=== PATIENT | male | born 1970 | race Caucasian/White ===

== ENCOUNTER 2019-10-29 21:22 | Inpatient (IN) | payer SELFPAY ==
[~2019-10-29] VITALS: Ht 167.6 cm; Wt 98.9 kg
[2019-10-29] MEDS ORDERED: ACETAMINOPHEN 325MG TABLET PO ONE (22:30)
[2019-10-29] MEDS ORDERED: ALBUTEROL (0.083%) 2.5MG/3ML NEB HHN STA (22:52)
[2019-10-29] MEDS ORDERED: IPRATROPIUM BROMIDE (0.02%) 0.5MG/2.5ML NEB HHN STA (22:52)
[2019-10-29] MEDS ORDERED: PREDNISONE 20MG TABLET PO ONE (23:00)
[2019-10-30] MEDS ORDERED: CEFTRIAXONE 1 G PREMIX 50 ML IV ONE (02:00)
[2019-10-30] MEDS ORDERED: AZITHROMYCIN 500 MG in DEXT 5% WATER 250 ML IV ONE (02:00)
[2019-10-30] MEDS ORDERED: SODIUM CHLORIDE 0.9% 1000ML BAG (SEPSIS BOLUS) IV ONE (02:00)
[2019-10-30 02:12] LABS: BASOPHILS % 0.2 % (0.0-2.0); EOSINOPHILS % 0.1 % (0.0-5.0); HEMATOCRIT. 43.9 % (42.0-52.0); HEMOGLOBIN. 15.2 g/dL (14.0-18.0); LYMPHOCYTES % 20.1 % (20.0-50.0); MEAN CORPUSCULAR HEMOGLOBIN 29.3 pg (28.0-32.0); MEAN CORPUSCULAR VOLUME 84.9 fL (80.0-94.0); MEAN PLATELET VOLUME 9.9 fl (7.4-10.4); MONOCYTES % 3.9 % (2.0-8.0); NEUTROPHILS % 75.7 % (40.0-76.0); PLATELET 152 x1000/uL (130-400); RED BLOOD CELL COUNT 5.17 mill/uL (4.7-6.1); RED CELL DISTRIBUTION WIDTH 14.1 % (11.6-14.6)
[2019-10-30 02:15] LABS: CHLORIDE 98 mEq/L (98-107)
[2019-10-30 02:18] LABS: PROTHROMBIN TIME 11.2 sec (9.6-11.0)
[2019-10-30 04:03] LABS: CLARITY URINE CLOUDY (CLEAR); COLOR URINE DARK YELLOW (YELLOW); KETONES URINE 2+ (NEGATIVE); LEUKOCYTE ESTERASE URINE 1+ (NEGATIVE); NITRITE URINE POSITIVE (NEGATIVE); OCCULT BLOOD URINE NEGATIVE (NEGATIVE); PROTEIN URINE 2+ (NEGATIVE); SPECIFIC GRAVITY URINE 1.044 (1.005-1.030)
[2019-10-30] MEDS ORDERED: IBUPROFEN 600MG TABLET PO ONE (05:00)
[2019-10-30] MEDS ORDERED: CLONIDINE 0.1MG TABLET PO PRN (10:45)
[2019-10-30] MEDS ORDERED: MAGNESIUM/ALUMINUM HYDROXIDE/SIMETHICONE 30ML UDC PO PRN (10:45)
[2019-10-30] MEDS ORDERED: ACETAMINOPHEN 325MG TABLET PO PRN ×2 (10:45)
[2019-10-30] MEDS ORDERED: DEXTROSE 50% WATER 50ML SYRINGE IV PRN (10:45)
[2019-10-30] MEDS ORDERED: AZITHROMYCIN 500 MG in DEXT 5% WATER 250 ML IV SCH (10:45)
[2019-10-30] MEDS ORDERED: ENOXAPARIN 40MG/0.4ML SYR SUBCUT SCH (12:30)
[2019-10-30] MEDS: BLOOD SUGAR DIAGNOSTIC STRIP TEST SCH ×3 (12:43→21:00)
[2019-10-30] MEDS: SODIUM CHLORIDE 0.9% INJ 3ML FLUSH IVF SCH ×2 (14:00→21:31)
[2019-10-30 14:30] VITALS: BP 132/84
[2019-10-30] MEDS ORDERED: METF-414 MT (15:18)
[2019-10-30] MEDS ORDERED: LISI-604 MT (15:18)
[2019-10-30] MEDS: INSULIN LISPRO 100 UNITS/ML SUBCUT SCH ×2 (17:10→21:00)
[2019-10-30] MEDS ORDERED: ALBUTEROL (0.5%) 2.5MG/0.5ML NEB HHN PRN (17:15)
[2019-10-30] MEDS ORDERED: IBUPROFEN 600MG TABLET PO PRN (19:00)
[2019-10-30 20:00] VITALS: BP 128/68
[2019-10-30] MEDS ORDERED: ZOLPIDEM TARTRATE 5MG TABLET PO PRN (21:00)
[2019-10-30] MEDS: GUAIFENESIN 600MG ER TABLET PO SCH (21:29)
[2019-10-31] VITALS: BP 100/61
[2019-10-31] MEDS: PROMETHAZINE/DEXTROMETHORPHAN 6.25-15MG/5ML BOTTLE 120ML PO PRN ×2 (00:33→21:52)
[2019-10-31] MEDS: DIPHENHYDRAMINE 50MG/ML VIAL IV PRN (03:12)
[2019-10-31] MEDS: ONDANSETRON HCL 4MG/2ML INJ IV PRN (03:12)
[2019-10-31 04:00] VITALS: BP 113/68
[2019-10-31] MEDS: INSULIN LISPRO 100 UNITS/ML SUBCUT SCH ×4 (06:08→21:00)
[2019-10-31] MEDS: AZITHROMYCIN 250 MG in DEXT 5% WATER 250 ML IV SCH (06:08)
[2019-10-31] MEDS: SODIUM CHLORIDE 0.9% INJ 3ML FLUSH IVF SCH ×3 (06:08→21:50)
[2019-10-31] MEDS: METFORMIN HCL 500MG TABLET PO SCH (06:08)
[2019-10-31] MEDS: BLOOD SUGAR DIAGNOSTIC STRIP TEST SCH ×4 (06:08→21:00)
[2019-10-31 08:00] VITALS: BP 134/76
[2019-10-31] MEDS: GUAIFENESIN 600MG ER TABLET PO SCH ×2 (08:18→21:50)
[2019-10-31 12:00] VITALS: BP 130/76
[2019-10-31] MEDS: ACETAMINOPHEN 325MG TABLET PO PRN (15:24)
[2019-10-31 16:00] VITALS: BP 110/69
[2019-10-31 20:00] VITALS: BP 117/71
[2019-11-01] VITALS: BP 110/66
[2019-11-01 04:00] VITALS: BP 123/73
[2019-11-01] MEDS: AZITHROMYCIN 250 MG in DEXT 5% WATER 250 ML IV SCH (04:04)
[2019-11-01] MEDS: SODIUM CHLORIDE 0.9% INJ 3ML FLUSH IVF SCH ×3 (04:05→20:47)
[2019-11-01] MEDS: BLOOD SUGAR DIAGNOSTIC STRIP TEST SCH ×4 (06:00→20:41)
[2019-11-01] MEDS: INSULIN LISPRO 100 UNITS/ML SUBCUT SCH ×4 (06:01→20:41)
[2019-11-01] MEDS: METFORMIN HCL 500MG TABLET PO SCH (06:01)
[2019-11-01 06:57] LABS: BASOPHILS % 0.2 % (0.0-2.0); EOSINOPHILS % 1.3 % (0.0-5.0); HEMATOCRIT. 41.8 % (42.0-52.0); HEMOGLOBIN. 14.1 g/dL (14.0-18.0); MEAN CORPUSCULAR HEMOGLOBIN 29.2 pg (28.0-32.0); MEAN CORPUSCULAR VOLUME 86.2 fL (80.0-94.0); MEAN PLATELET VOLUME 8.8 fl (7.4-10.4); MONOCYTES % 6.3 % (2.0-8.0); NEUTROPHILS % 70.2 % (40.0-76.0); PLATELET 179 x1000/uL (130-400); RED BLOOD CELL COUNT 4.85 mill/uL (4.7-6.1); RED CELL DISTRIBUTION WIDTH 14.3 % (11.6-14.6)
[2019-11-01 06:59] LABS: CHLORIDE 101 mEq/L (98-107)
[2019-11-01 07:05] LABS: PHOSPHORUS 2.7 mg/dL (2.5-4.9)
[2019-11-01 08:00] VITALS: BP 118/76
[2019-11-01] MEDS: GUAIFENESIN 600MG ER TABLET PO SCH ×2 (09:00→20:41)
[2019-11-01] MEDS: PROMETHAZINE/DEXTROMETHORPHAN 6.25-15MG/5ML BOTTLE 120ML PO PRN (09:02)
[2019-11-01 12:00] VITALS: BP 105/76
[2019-11-01 16:00] VITALS: BP 118/56
[2019-11-01] MEDS: ACETAMINOPHEN 325MG TABLET PO PRN (17:23)
[2019-11-01 20:00] VITALS: BP 123/59
[2019-11-02] VITALS: BP 122/64
[2019-11-02 04:00] VITALS: BP 127/76
[2019-11-02] MEDS: METFORMIN HCL 500MG TABLET PO SCH (06:14)
[2019-11-02] MEDS: INSULIN LISPRO 100 UNITS/ML SUBCUT SCH ×4 (06:14→21:00)
[2019-11-02] MEDS: AZITHROMYCIN 250 MG TABLET PO SCH (06:14)
[2019-11-02] MEDS: BLOOD SUGAR DIAGNOSTIC STRIP TEST SCH ×4 (06:14→21:26)
[2019-11-02] MEDS: SODIUM CHLORIDE 0.9% INJ 3ML FLUSH IVF SCH ×3 (06:19→21:10)
[2019-11-02 08:00] VITALS: BP 135/87
[2019-11-02] MEDS: GUAIFENESIN 600MG ER TABLET PO SCH ×2 (09:33→21:10)
[2019-11-02 12:00] VITALS: BP 128/82
[2019-11-02] MEDS ORDERED: FUROSEMIDE 40MG/4ML VIAL IVP NR (12:00)
[2019-11-02] MEDS: HYDROXYCHLOROQUINE SULFATE 200MG TABLET PO SCH ×2 (13:09→18:28)
[2019-11-02] MEDS: ZINC SULFATE 220 MG ( 50 ) CAPSULE PO SCH (13:10)
[2019-11-02] MEDS: THIAMINE HCL 100MG TABLET PO SCH ×2 (13:10→18:28)
[2019-11-02] MEDS: ASCORBIC ACID 500 MG TABLET PO SCH ×3 (13:10→23:40)
[2019-11-02] MEDS: ALBUTEROL 6.7GM HFA INHALER ORI PRN ×2 (13:26→21:16)
[2019-11-02] MEDS: ONDANSETRON HCL 4MG/2ML INJ IV PRN (15:08)
[2019-11-02 16:00] VITALS: BP 135/78
[2019-11-02] MEDS: MONTELUKAST SODIUM 10MG TABLET PO SCH (18:28)
[2019-11-02 20:00] VITALS: BP 117/68
[2019-11-02] MEDS: FAMOTIDINE 20MG TABLET PO SCH (21:10)
[2019-11-03 00:05] VITALS: BP 110/58
[2019-11-03 04:00] VITALS: BP 120/62
[2019-11-03 05:51] LABS: BASOPHILS % 0.2 % (0.0-2.0); HEMATOCRIT. 39.1 % (42.0-52.0); HEMOGLOBIN. 13.4 g/dL (14.0-18.0); LYMPHOCYTES % 19.4 % (20.0-50.0); MEAN CORPUSCULAR HEMOGLOBIN 29.2 pg (28.0-32.0); MEAN CORPUSCULAR VOLUME 84.9 fL (80.0-94.0); MEAN PLATELET VOLUME 8.5 fl (7.4-10.4); NEUTROPHILS % 70.4 % (40.0-76.0); PLATELET 233 x1000/uL (130-400); RED CELL DISTRIBUTION WIDTH 13.9 % (11.6-14.6)
[2019-11-03 06:05] LABS: CHLORIDE 98 mEq/L (98-107)
[2019-11-03 06:14] LABS: PHOSPHORUS 2.9 mg/dL (2.5-4.9)
[2019-11-03 06:17] LABS: CREATINE KINASE MB FRACTION < 1.0 ng/mL (0.5-3.6)
[2019-11-03] MEDS: SODIUM CHLORIDE 0.9% INJ 3ML FLUSH IVF SCH ×3 (06:56→22:12)
[2019-11-03] MEDS: INSULIN LISPRO 100 UNITS/ML SUBCUT SCH ×4 (06:57→21:00)
[2019-11-03] MEDS: METFORMIN HCL 500MG TABLET PO SCH ×2 (06:57→07:10)
[2019-11-03] MEDS: AZITHROMYCIN 250 MG TABLET PO SCH (06:57)
[2019-11-03] MEDS: ASCORBIC ACID 500 MG TABLET PO SCH ×3 (06:57→17:17)
[2019-11-03] MEDS: BLOOD SUGAR DIAGNOSTIC STRIP TEST SCH ×4 (06:57→21:00)
[2019-11-03 08:00] VITALS: BP 116/54
[2019-11-03] MEDS: HYDROXYCHLOROQUINE SULFATE 200MG TABLET PO SCH ×2 (09:12→17:18)
[2019-11-03] MEDS: THIAMINE HCL 100MG TABLET PO SCH ×2 (09:13→17:18)
[2019-11-03] MEDS: ZINC SULFATE 220 MG ( 50 ) CAPSULE PO SCH (09:13)
[2019-11-03] MEDS: GUAIFENESIN 600MG ER TABLET PO SCH ×3 (09:13→22:11)
[2019-11-03 11:47] VITALS: BP 126/62
[2019-11-03 15:33] VITALS: BP 121/58
[2019-11-03] MEDS: MONTELUKAST SODIUM 10MG TABLET PO SCH (17:18)
[2019-11-03 20:00] VITALS: BP 117/70
[2019-11-03] MEDS: FAMOTIDINE 20MG TABLET PO SCH (22:11)
[2019-11-04] VITALS: BP 110/76
[2019-11-04] MEDS: BLOOD SUGAR DIAGNOSTIC STRIP TEST SCH ×4 (06:40→21:00)
[2019-11-04] MEDS: INSULIN LISPRO 100 UNITS/ML SUBCUT SCH ×4 (07:10→21:00)
[2019-11-04] MEDS: SODIUM CHLORIDE 0.9% INJ 3ML FLUSH IVF SCH ×3 (07:11→22:00)
[2019-11-04] MEDS: ASCORBIC ACID 500 MG TABLET PO SCH ×5 (07:11→23:16)
[2019-11-04 08:00] VITALS: BP 122/78
[2019-11-04] MEDS: HYDROXYCHLOROQUINE SULFATE 200MG TABLET PO SCH ×2 (08:58→17:53)
[2019-11-04] MEDS: ZINC SULFATE 220 MG ( 50 ) CAPSULE PO SCH (08:58)
[2019-11-04] MEDS: METFORMIN HCL 500MG TABLET PO SCH (08:58)
[2019-11-04] MEDS: THIAMINE HCL 100MG TABLET PO SCH (08:59)
[2019-11-04] MEDS: GUAIFENESIN 600MG ER TABLET PO SCH ×2 (08:59→21:53)
[2019-11-04 12:00] VITALS: BP 112/63
[2019-11-04 16:00] VITALS: BP 116/58
[2019-11-04] MEDS: MONTELUKAST SODIUM 10MG TABLET PO SCH (17:53)
[2019-11-04 20:00] VITALS: BP 121/71
[2019-11-04] MEDS: FAMOTIDINE 20MG TABLET PO SCH (21:52)
[2019-11-05 00:26] VITALS: BP 105/75
[2019-11-05] MEDS: PROMETHAZINE/DEXTROMETHORPHAN 6.25-15MG/5ML BOTTLE 120ML PO PRN ×2 (01:12→23:06)
[2019-11-05] MEDS: BENZONATATE 100MG CAPSULE PO PRN ×2 (01:32→16:58)
[2019-11-05 04:00] VITALS: BP 103/61
[2019-11-05] MEDS: SODIUM CHLORIDE 0.9% INJ 3ML FLUSH IVF SCH ×2 (05:14→22:00)
[2019-11-05] MEDS: BLOOD SUGAR DIAGNOSTIC STRIP TEST SCH ×4 (06:40→21:58)
[2019-11-05] MEDS: INSULIN LISPRO 100 UNITS/ML SUBCUT SCH ×4 (07:00→21:00)
[2019-11-05 08:00] VITALS: BP 127/68
[2019-11-05] MEDS: GUAIFENESIN 600MG ER TABLET PO SCH ×2 (09:09→21:59)
[2019-11-05] MEDS: THIAMINE HCL 100MG TABLET PO SCH ×3 (09:09→16:58)
[2019-11-05] MEDS: ASCORBIC ACID 500 MG TABLET PO SCH ×2 (09:09→21:59)
[2019-11-05] MEDS: METFORMIN HCL 500MG TABLET PO SCH (09:09)
[2019-11-05] MEDS: HYDROXYCHLOROQUINE SULFATE 200MG TABLET PO SCH ×2 (09:09→16:58)
[2019-11-05] MEDS: ZINC SULFATE 220 MG ( 50 ) CAPSULE PO SCH (09:09)
[2019-11-05 12:00] VITALS: BP 121/79
[2019-11-05 16:00] VITALS: BP 145/78
[2019-11-05] MEDS: MONTELUKAST SODIUM 10MG TABLET PO SCH (16:58)
[2019-11-05 20:00] VITALS: BP 126/59
[2019-11-05] MEDS: FAMOTIDINE 20MG TABLET PO SCH (21:00)
[2019-11-05] MEDS: ACETAMINOPHEN 325MG TABLET PO PRN (21:59)
[2019-11-06] VITALS: BP 107/70
[2019-11-06] MEDS: BENZONATATE 100MG CAPSULE PO PRN (00:38)
[2019-11-06 04:00] VITALS: BP 118/72
[2019-11-06] MEDS: SODIUM CHLORIDE 0.9% INJ 3ML FLUSH IVF SCH ×3 (06:00→22:45)
[2019-11-06] MEDS: BLOOD SUGAR DIAGNOSTIC STRIP TEST SCH ×4 (06:40→21:00)
[2019-11-06] MEDS: METFORMIN HCL 500MG TABLET PO SCH ×2 (07:10→08:22)
[2019-11-06] MEDS: INSULIN LISPRO 100 UNITS/ML SUBCUT SCH ×4 (07:10→21:00)
[2019-11-06 08:00] VITALS: BP 143/62
[2019-11-06] MEDS: GUAIFENESIN 600MG ER TABLET PO SCH ×3 (08:21→22:44)
[2019-11-06] MEDS: ASCORBIC ACID 500 MG TABLET PO SCH ×2 (08:22→22:44)
[2019-11-06] MEDS: HYDROXYCHLOROQUINE SULFATE 200MG TABLET PO SCH ×2 (08:22→18:52)
[2019-11-06] MEDS: THIAMINE HCL 100MG TABLET PO SCH ×2 (08:22→18:52)
[2019-11-06] MEDS: ZINC SULFATE 220 MG ( 50 ) CAPSULE PO SCH (08:24)
[2019-11-06] MEDS: DIPHENHYDRAMINE 50MG/ML VIAL IV PRN (11:36)
[2019-11-06 12:00] VITALS: BP 139/82
[2019-11-06 16:00] VITALS: BP 115/74
[2019-11-06] MEDS: MONTELUKAST SODIUM 10MG TABLET PO SCH (18:53)
[2019-11-06] MEDS: ACETAMINOPHEN 325MG TABLET PO PRN (18:53)
[2019-11-06 20:00] VITALS: BP 113/78
[2019-11-06] MEDS: FAMOTIDINE 20MG TABLET PO SCH ×2 (21:00→22:44)
[2019-11-07] VITALS: BP 132/84
[2019-11-07 04:00] VITALS: BP 133/85
[2019-11-07] MEDS: BLOOD SUGAR DIAGNOSTIC STRIP TEST SCH ×3 (06:55→17:30)
[2019-11-07] MEDS: METFORMIN HCL 500MG TABLET PO SCH (06:56)
[2019-11-07] MEDS: SODIUM CHLORIDE 0.9% INJ 3ML FLUSH IVF SCH ×2 (06:56→13:35)
[2019-11-07] MEDS: INSULIN LISPRO 100 UNITS/ML SUBCUT SCH ×3 (06:56→17:10)
[2019-11-07 08:00] VITALS: BP 130/78
[2019-11-07] MEDS: GUAIFENESIN 600MG ER TABLET PO SCH (09:00)
[2019-11-07] MEDS: ASCORBIC ACID 500 MG TABLET PO SCH (09:12)
[2019-11-07] MEDS: ZINC SULFATE 220 MG ( 50 ) CAPSULE PO SCH (09:13)
[2019-11-07] MEDS: THIAMINE HCL 100MG TABLET PO SCH ×2 (09:14→17:46)
[2019-11-07 12:03] VITALS: BP 126/72
[2019-11-07] MEDS: ACETAMINOPHEN 325MG TABLET PO PRN (13:35)
[2019-11-07 16:00] VITALS: BP 116/71
[2019-11-07 17:04] VITALS: BP 116/72
[2019-11-07] MEDS: MONTELUKAST SODIUM 10MG TABLET PO SCH (17:46)
== END 2019-11-07 18:33 | disposition home or self-care (01) | DRG 720 ==
LOC: ER 21:22 → 7EST 10-30 04:49 → EDBEDREQ 10-30 04:51 → EDBEDREQTM 10-30 04:51 → ENRESERV 10-30 13:08
PROVIDERS: ADMIT Internal Medicine; ATTEND Internal Medicine
DX: A41.9 Sepsis, unspecified organism (principal); U07.1 COVID-19; J96.01 Acute respiratory failure with hypoxia; J45.901 Unspecified asthma with (acute) exacerbation; E11.9 Type 2 diabetes mellitus without complications; I10 Essential (primary) hypertension; E66.9 Obesity, unspecified; J12.89 Other viral pneumonia; N39.0 Urinary tract infection, site not specified; R74.0 Nonspecific elevation of levels of transaminase and lactic acid dehydrogenase [LDH]; Z82.49 Family history of ischemic heart disease and other diseases of the circulatory system; Z91.19 Patient's noncompliance with other medical treatment and regimen; Z83.3 Family history of diabetes mellitus; Z88.2 Allergy status to sulfonamides; Z90.49 Acquired absence of other specified parts of digestive tract; Z68.35 Body mass index [BMI] 35.0-35.9, adult
CPT/HCPCS: 36415; 71045; 80053; 81003; 82553; 82728; 82962; 83036; 83605; 83615; 83735; 83880; 84100; 84145; 85025; 86140; 87635; 87804; 93005; 99291; J0456; J0696; J1200; J1650; J1815; J1940; J2405; J7030; J7060; J7512

== ENCOUNTER 2020-06-12 09:51 | Emergency (ER) | payer MEDICAID ==
[~2020-06-12] VITALS: Ht 172.7 cm; Wt 111.0 kg
[~2020-06-12 09:51] MED LIST: LISI-604 MT; METF-414 MT
[2020-06-12] MEDS ORDERED: CLONIDINE 0.1MG TABLET PO ONE (10:15)
[2020-06-12 10:31] LABS: BASOPHILS % 0.5 % (0.0-2.0); EOSINOPHILS % 1.6 % (0.0-5.0); HEMATOCRIT. 46.8 % (42.0-52.0); HEMOGLOBIN. 15.7 g/dL (14.0-18.0); LYMPHOCYTES % 26.7 % (20.0-50.0); MEAN PLATELET VOLUME 8.8 fl (7.4-10.4); MONOCYTES % 4.9 % (2.0-8.0); NEUTROPHILS % 66.3 % (40.0-76.0); PLATELET 149 x1000/uL (130-400); RED BLOOD CELL COUNT 5.44 mill/uL (4.7-6.1); RED CELL DISTRIBUTION WIDTH 14.7 % (11.6-14.6)
[2020-06-12 10:38] LABS: CHLORIDE 102 mEq/L (98-107)
[2020-06-12] MEDS ORDERED: HYDROCODONE/ACETAMINOPHEN 5/325MG TABLET PO ONE (12:00)
[2020-06-12 14:00] VITALS: BP 156/98
== END 2020-06-12 14:30 ==
LOC: ER 09:51
DX: I10 Essential (primary) hypertension (principal); E11.65 Type 2 diabetes mellitus with hyperglycemia; J45.909 Unspecified asthma, uncomplicated; Z91.013 Allergy to seafood; Z88.2 Allergy status to sulfonamides; Z98.890 Other specified postprocedural states
CPT/HCPCS: 36415; 80048; 84484; 85025; 93005; 99285